=== PATIENT | male | born 1975 | race Caucasian/White ===

== ENCOUNTER 2016-04-22 04:22 | Emergency (ER) | payer BC ==
[~2016-04-22] VITALS: Ht 177.8 cm; Wt 105.0 kg
[2016-04-22 04:32] VITALS: Ht 177.8 cm; Wt 105.0 kg
[2016-04-22] MEDS ORDERED: morphine 4 MG/ML VIAL IV STA ×2 (05:01→05:34)
[2016-04-22] MEDS ORDERED: ONDANSETRON 4 MG INJ IV STA (05:01)
[2016-04-22 05:16] LABS: POTASSIUM 3.9 mmol/L (3.5-5.1)
[2016-04-22 05:18] LABS: ALBUMIN/GLOBULIN RATIO 1.21; BASOPHILS % 0.3 % (0.0-2.0); BILIRUBIN,INDIRECT 1.1 mg/dl (0-1.1); BILIRUBIN,TOTAL 1.1 mg/dl (0.2-1.3); CREATININE 0.86 mg/dl (0.61-1.24); HEMATOCRIT 45.9 % (42.0-52.0); HEMOGLOBIN 15.9 g/dl (14.0-18.0); LYMPHOCYTES # 0.6 10^3/ul (0.8-2.9); LYMPHOCYTES % 6.7 % (15.0-51.0); MEAN CORPUSCULAR HEMOGLOBIN 29.8 pg (29.0-33.0); MEAN CORPUSCULAR HGB CONC 34.7 g/dl (32.0-37.0); MEAN CORPUSCULAR VOLUME 85.9 fl (82.0-101.0); MEAN PLATELET VOLUME 8.2 fl (7.4-10.4); MONOCYTE # 0.3 10^3/ul (0.3-0.9); MONOCYTES % 2.8 % (0.0-11.0); NEUTROPHIL # 8.6 10^3/ul (1.6-7.5); NEUTROPHILS % 90.2 % (39.0-77.0); PLATELET COUNT 269 10^3/UL (140-440); RED BLOOD COUNT 5.34 10^6/ul (4.70-6.10); RED CELL DISTRIBUTION WIDTH 12.2 % (11.5-14.5); TOTAL PROTEIN 9.1 g/dl (6.1-8.1); UNCORRECTED WBC 9.6 10^3/ul (4.8-10.8); WHITE BLOOD COUNT 9.6 10^3/ul (4.8-10.8)
[2016-04-22 05:19] LABS: CALCIUM 9.5 mg/dl (8.4-10.2)
[2016-04-22 05:36] LABS: ADD UMIC YES; URINE BILIRUBIN (Dip) NEGATIVE (NEGATIVE); URINE BLOOD (Dip) NEGATIVE (NEGATIVE); URINE COLOR LT. YELLOW (YELLOW); URINE KETONES (Dip) 3+ (NEGATIVE); URINE LEUKOCYTE ESTERASE (Dip) NEGATIVE (NEGATIVE); URINE NITRITE (Dip) NEGATIVE (NEGATIVE); URINE TOTAL PROTEIN (Dip) 1+ (NEGATIVE); URINE UROBILINOGEN (Dip) 1.0 E.U./dL (0.1-1.0)
[2016-04-22 05:46] LABS: MUCUS,URINE FEW; URINE RBCS 0-2 /HPF ([, 0])
[2016-04-22 05:54] LABS: CONDITION 1; LH ANALYZER COMMENTS 1
[2016-04-22] MEDS ORDERED: HYDR-906 PO (05:54)
[2016-04-22] MEDS ORDERED: ONDA4TAB14 PO (05:54)
[2016-04-22] MEDS ORDERED: DICLOFENAC SODIUM 37.5 MG/ML VIAL IV ONE (06:23)
--- NOTE | 2016-04-22 07:34 | RADRPT ---
PROCEDURE: Abdominal ultrasound CLINICAL INDICATION: Abdominal pain TECHNIQUE: Martin scale, color Doppler, and spectral Doppler ultrasound images of the right upper qu adrant. COMPARISON: None FINDINGS: Pancreas: Visualized portions appear of normal echogenicity, no focal lesions. Liver: Morphology: Normal in size and contour. Echogenicity: Increased echogenicity of the liver parenchyma suggestive of hepatic steatosis. Focal lesions: None. Main portal vein: Patent with hepatopetal flow. Biliary System: Normal appearing gallbladder wall. No gallstones seen. No intra or extra-hepatic biliary dilatation. Common bile duct measures 1.6 mm in maximal dimension. Kidneys: Right 13.0 cm in length. Normal echogenicity. No hydronephrosis. No focal lesions or renal calculi. No free fluid identified. IMPRESSION: Normal gallbladder. No gallstones. Increased echogenicity of the liver parenchyma suggestive of hepatic steatosis. RPTAT: AADD .Eyal Monahan MD, MD Date Time Electronically viewed and signed by .Eyal Monahan MD, on 04/22/2016 07:33 .B/
[2016-04-22] MEDS ORDERED: NAPR-688 PO (07:47)
--- NOTE | 2016-04-22 07:52 | ERD ---
ER Documentation Chief Complaint Date/Time DATE: 04/22/16 TIME: 07:48 Chief Complaint epigastric pain for 8 hrs, n/v HPI This 41-year-old male presents with epigastric pain, nausea vomiting and diarrhea that started last night. He's not sure if he might of ate some bad food he says. The diarrhea was copious and watery, the nausea and vomiting was nonbloody and nonbilious. Has had abdominal crampy pain most pronounced in the upper abdominal area. It was worse following vomiting. Denies any fever or chills. He does not have any right lower quadrant pain. ROS All systems reviewed and are negative except as per history of present illness. Medications Home Meds Active Scripts Naproxen* (Naproxen*) 500 Mg Tablet, 500 MG PO BID Y for PAIN, #20 TAB Prov:MAKIVERÓNICA DO 04/22/16 Hydrocodone/Acetaminophen ([place] 5-325 Tablet) 1 Each Tablet, 1 TAB PO Q6H Y for PAIN, #7 TAB Prov:SAMM FERNANDEZ MD 04/22/16 Ondansetron (Ondansetron Odt) 4 Mg Tab.rapdis, 4 MG PO Q6H Y for NAUSEA AND/OR VOMITING, #10 TAB Prov:SAMM FERNANDEZ MD 04/22/16 Allergies Allergies: Coded Allergies: No Known Allergy (Unverified , 04/22/16) PMhx/Soc Medical and Surgical Hx: pt denies Medical Hx, pt denies Surgical Hx Hx Alcohol Use: Yes Hx Substance Use: No Hx Tobacco Use: Yes Smoking Status: Former smoker Physical Exam Vitals Vital Signs Date Time Temp Pulse Resp B/P Pulse Ox O2 Delivery O2 Flow Rate FiO2 04/22/16 04:32 98.3 91 20 152/72 98 Physical Exam Const: [] No distress Head: Atraumatic Eyes: Normal Conjunctiva ENT: Normal External Ears, Nose and Mouth. Neck: Full range of motion..~ No meningismus. Resp: Clear to auscultation bilaterally Cardio: Regular rate and rhythm, no murmurs Abd: Soft, mild upper abdominal tenderness without guarding or rebound, non distended. Normal bowel sounds Skin: No petechiae or rashes Back: No midline or flank tenderness Ext: No cyanosis, or edema Neur: Awake and alert and oriented 3, no focal deficits Psych: Normal Mood and Affect Result Diagram: 04/22/16 0455 04/22/16 0455 Results 24 hrs Laboratory Tests Test 04/22/16 04:55 Alanine Aminotransferase (ALT/SGPT) 56IU/L Albumin 5.0g/dl Albumin/Globulin Ratio 1.21 Alkaline Phosphatase 90IU/L Anion Gap 22 Aspartate Amino Transf (AST/SGOT) 37IU/L Basophils # Pending Basophils % Pending Blood Urea Nitrogen 14mg/dl Calcium Level 9.5mg/dl Carbon Dioxide Level 26mmol/L Chloride Level 99mmol/L Creatinine 0.86mg/dl Direct Bilirubin 0.00mg/dl Eosinophils # Pending Eosinophils % Pending Globulin 4.10g/dl Glucose Level 156mg/dl Hematocrit 45.9% Hemoglobin 15.9g/dl Indirect Bilirubin 1.1mg/dl Lipase 43U/L Lymphocytes # Pending Lymphocytes % Pending Mean Corpuscular Hemoglobin 29.8pg Mean Corpuscular Hemoglobin Concent 34.7g/dl Mean Corpuscular Volume 85.9fl Mean Platelet Volume 8.2fl Monocytes # Pending Monocytes % Pending Neutrophils # Pending Neutrophils % Pending Nucleated Red Blood Cells # Pending Nucleated Red Blood Cells % Pending Platelet Count 53762^3/UL Potassium Level 3.9mmol/L Red Blood Count 5.3410^6/ul Red Cell Distribution Width 12.2% Sodium Level 143mmol/L Total Bilirubin 1.1mg/dl Total Protein 9.1g/dl Urine Amorphous Phosphates FEW Urine Bilirubin NEGATIVE Urine Clarity CLEAR Urine Color LT. YELLOW Urine Glucose 0.25%% Urine Hemoglobin NEGATIVE Urine Ketones 3+ Urine Leukocyte Esterase NEGATIVE Urine Microscopic RBC 0-2/HPF Urine Microscopic WBC 0-2/HPF Urine Mucus FEW Urine Nitrite NEGATIVE Urine Specific [place] 1.015 Urine Total Protein 1+ Urine Urobilinogen 1.0 E.U./dL Urine pH 8.5 White Blood Count 9.610^3/ul Current Medications Medications (Trade) Dose Ordered Sig/Jose C Route PRN Reason Start Time Stop Time Status Last Admin Dose Admin Morphine Sulfate (morphine) 4 mg ONCE STAT IV 04/22/16 05:01 04/22/16 05:02 DC 04/22/16 05:05 Ondansetron HCl (Zofran Inj) 4 mg ONCE STAT IV 04/22/16 05:01 04/22/16 05:02 DC 04/22/16 05:05 Morphine Sulfate (morphine) 4 mg ONCE STAT IV 04/22/16 05:34 04/22/16 05:36 DC 04/22/16 05:41 Diclofenac Sodium (Dyloject) 37.5 mg ONCE ONCE IV 04/22/16 06:23 04/22/16 06:24 DC 04/22/16 07:05 Procedures/MDM Likely acute gastroenteritis versus food poisoning. Patient has normal labs stable vital signs and appears very well hydrated. Taking good by mouth in the emergency room. Symptoms were resolved with IV fluids, Zofran and morphine. I sent a gallbladder does not reveal any gallstones this is essentially ruled out for cholecystitis. Patient also has a normal bowel gas pattern on x-ray ruling out intestinal obstruction. Discharging him with a few [place], naproxen and Zofran. Primary care follow-up in 2-3 days. Gallbladder ultrasound interpretation: No gallstones, no pursed cardiac fluid, no dilated ducts X-ray abdomen interpretation two-view by myself: See no acute process associated normal bowel gas pattern, no signs of obstruction or free air, no foreign bodies and no fractures Departure Diagnosis: Primary Impression: Abdominal pain Additional Impression: Vomiting and diarrhea Condition: Good Patient Instructions: Abdominal Pain, Self-Care for Vomiting and Diarrhea Additional Instructions: Call your primary care doctor TOMORROW for an appointment during the next 2-3 days.See the doctor sooner or return here if your condition worsens before your appointment time. VERÓNICA GAMBINO DO Apr 22, 2016 07:52
--- NOTE | 2016-04-22 07:54 | RADRPT ---
PROCEDURE: XR acute abdominal series. CLINICAL INDICATION: Abdominal pain TECHNIQUE: 3 views of the abdomen. COMPARISON: None. FINDINGS: No evidence of free air under the diaphragms on the upright view. Nonspecific bowel gas pattern. Osseous structures within normal limits. No soft tissue abnormalities. No radiopaque foreign bodies. IMPRESSION: No radiographic evidence of bowel obstruction. RPTAT: AADD .Eyal Monahan MD, MD Date Time Electronically viewed and signed by .Eyal Monahan MD, on 04/22/2016 07:54 .B/
[2016-04-22 08:07] VITALS: BP 135/79; PULSE 77; RESP 19; TEMP 98.6
== END 2016-04-22 09:02 | disposition home or self-care (01) ==
LOC: E/R 04:22
DX: R10.10 Upper abdominal pain, unspecified (principal); R11.10 Vomiting, unspecified; R19.7 Diarrhea, unspecified; Z87.891 Personal history of nicotine dependence
CPT/HCPCS: 36415; 74010; 76705; 80053; 81001; 83690; 85025; 96374; 96375; 96376; J2270; J2405; Z7502; Z7610; 81003

== ENCOUNTER 2016-04-25 05:27 | Emergency (ER) | payer BC ==
[~2016-04-25] VITALS: Ht 180.3 cm; Wt 104.0 kg
[~2016-04-25 05:27] MED LIST: HYDR-906 PO; NAPR-688 PO; ONDA4TAB14 PO
[2016-04-25 05:45] VITALS: Ht 180.3 cm; Wt 104.0 kg
[2016-04-25] MEDS ORDERED: ONDANSETRON 4 MG INJ IV STA ×2 (06:20→07:16)
[2016-04-25] MEDS ORDERED: SOD CHLORIDE 0.9% 1,000 ML IV STA (06:20)
[2016-04-25] MEDS ORDERED: morphine 4 MG/ML VIAL IV STA (06:20)
[2016-04-25] MEDS ORDERED: KETOROLAC 30 MG INJ IV STA (07:14)
--- NOTE | 2016-04-25 07:25 | RADRPT ---
PROCEDURE: CT Abdomen and Pelvis without contrast. CLINICAL INDICATION: Abdominal pain. TECHNIQUE: Routine axial tomographic images of the abdomen and pelvis were obtained from the domes the diaphragm to the symphysis pubis. The patient was scanned withoutoral or intravenous contrast. Coronal and sagittal reformatted images were obtained from the axial source images. Images were re viewed on a high-resolution PACS workstation. The total exam CTDI equals 21.68 mGy and the total exa m DLP equals 1426.65 mGy-cm. One or more of the following dose reduction techniques were used: Aut omated exposure control, adjustment of the mA and / or kV according to patient size, or use of itera tive reconstruction technique. COMPARISON: None. FINDINGS: The visualized portions of the lung bases demonstrate a 7 mm calcified granuloma within the right lo wer lobe. Evaluation of the intra-abdominal solid organs is somewhat limited on this noncontrast examination. The liver appears normal in size. The liver parenchyma demonstrates diffuse hypoatten uation. There is no intra or extrahepatic biliary dilatation. The gallbladder is unremarkable by CT criteria. The spleen, pancreas, and adrenal glands are unremarkable. The kidneys are symmetric in size. No renal, ureteral, or bladder calculi are identified. No perine phric inflammatory changes are identified. The urinary bladder is grossly unremarkable. The bowel demonstrates normal course and caliber. There is no evidence of bowel obstruction. The a ppendix is normal in appearance. There is an ovoid fat density with surrounding soft tissue attenuat ion within the right anterior abdomen. The pelvic organs are grossly unremarkable. No intraperiton eal free fluid, free air, or abscess is identified. No retroperitoneal, mesenteric, or inguinal lymp hadenopathy is identified. The aorta is normal in caliber. The osseous structures demonstrate mild intervertebral disk space narrowing discogenic endplate lemons ges of L5-S1. No significant subcutaneous soft tissue abnormalities are seen. IMPRESSION: 1. Limited noncontrast CT of the abdomen and pelvis. 2. Ovoid fat density within the right anterior abdomen with soft tissue attenuation rim. This may reflect epiploic appendagitis involving the adjacent proximal transverse colon, or a small omental i nfarct. 3. Hepatic steatosis. RPTAT: HH .Alcira Osborne MD, MD Date Time Electronically viewed and signed by .Alcira Osborne MD, MD on 04/25/2016 07:25 .G/
[2016-04-25 07:38] LABS: ADD UMIC YES; URINE BILIRUBIN (Dip) 1+ (NEGATIVE); URINE BLOOD (Dip) TRACE (NEGATIVE); URINE COLOR YELLOW (YELLOW); URINE KETONES (Dip) 40 (NEGATIVE); URINE LEUKOCYTE ESTERASE (Dip) NEGATIVE (NEGATIVE); URINE NITRITE (Dip) NEGATIVE (NEGATIVE); URINE TOTAL PROTEIN (Dip) TRACE (NEGATIVE); URINE UROBILINOGEN (Dip) 0.2 E.U./dL (0.1-1.0)
[2016-04-25 07:50] LABS: ALBUMIN 4.8 g/dl (3.3-4.9); POTASSIUM 3.6 mmol/L (3.5-5.1)
[2016-04-25 07:51] LABS: BASOPHIL # 0.1 10^3/ul (0.0-0.1); BASOPHILS % 0.6 % (0.0-2.0); HEMATOCRIT 46.5 % (42.0-52.0); HEMOGLOBIN 16.2 g/dl (14.0-18.0); LYMPHOCYTES # 0.8 10^3/ul (0.8-2.9); LYMPHOCYTES % 8.2 % (15.0-51.0); MEAN CORPUSCULAR HEMOGLOBIN 29.8 pg (29.0-33.0); MEAN CORPUSCULAR HGB CONC 34.9 g/dl (32.0-37.0); MEAN CORPUSCULAR VOLUME 85.4 fl (82.0-101.0); MEAN PLATELET VOLUME 8.4 fl (7.4-10.4); MONOCYTE # 0.4 10^3/ul (0.3-0.9); MONOCYTES % 4.3 % (0.0-11.0); NEUTROPHIL # 8.9 10^3/ul (1.6-7.5); NEUTROPHILS % 86.9 % (39.0-77.0); PLATELET COUNT 265 10^3/UL (140-440); RED BLOOD COUNT 5.45 10^6/ul (4.70-6.10); RED CELL DISTRIBUTION WIDTH 12.1 % (11.5-14.5); UNCORRECTED WBC 10.2 10^3/ul (4.8-10.8); WHITE BLOOD COUNT 10.2 10^3/ul (4.8-10.8)
[2016-04-25 07:52] LABS: CONDITION 1
[2016-04-25 07:53] LABS: ALBUMIN/GLOBULIN RATIO 1.26; BILIRUBIN,INDIRECT 1.6 mg/dl (0-1.1); BILIRUBIN,TOTAL 1.6 mg/dl (0.2-1.3); CALCIUM 9.3 mg/dl (8.4-10.2); CREATININE 0.87 mg/dl (0.61-1.24); TOTAL PROTEIN 8.6 g/dl (6.1-8.1)
[2016-04-25 08:00] LABS: ICTOTEST NEGATIVE (NEGATIVE)
[2016-04-25 08:01] LABS: BACTERIA,URINE FEW; MUCUS,URINE FEW; URINE RBCS 0-2 /HPF (0)
[2016-04-25] MEDS ORDERED: HYDR-906 PO (08:16)
[2016-04-25] MEDS ORDERED: ONDA4TAB8 PO (08:16)
--- NOTE | 2016-04-25 09:12 | ERD ---
DATE OF SERVICE: 04/25/2016 HISTORY OF PRESENT ILLNESS: The patient is a 41-year-old male coming in complaining of abdominal pa in with nausea, vomiting and diarrhea. Patient states he was seen 3 days ago. He feels that he ate something, but his symptoms have been progressive. He has had epigastric tenderness. No other abd ominal pain. Has normal urination and bowel movements this morning. Last bowel movement was this m orning. PAST MEDICAL HISTORY: No other medical problems. ALLERGIES: No allergies to medications. SURGICAL HISTORY: Denies. SOCIAL HISTORY: Denies smoking, DRUG USE: Marijuana. ALCOHOL ABUSE: Denies. REVIEW OF SYSTEMS: A 12-point review of systems was done. Refer to HPI for positives, all other sy stems negative. PHYSICAL EXAMINATION VITAL SIGNS: Temperature is 98.6, pulse 84, blood pressure is 133/89, respiratory rate 18, O2 satur ation 100% on room air. Pain intensity of 10/10. GENERAL: The patient is well-appearing, well-nourished, no acute distress. LUNGS: Clear to auscultation bilaterally. There are no rales, wheezes or rhonchi. HEART: Regular rate and rhythm, no murmurs, clicks, rubs or gallops. SKIN: There is no apparent rash or petechiae. PHYSICAL EXAMINATION: VITALS: GENERAL: The patient is well developed and appropriate for usual state of health in no apparent dis tress. HEENT: Pupils equal, round, and reactive to light. EOMI. There is no scleral icterus. NECK: C-spine is soft and supple, there is no meningismus. There is no cervical lymphadenopathy. SKIN: There is no apparent rash or petechiae. BACK EXAM: Normal. ABDOMEN: Normoactive bowel sounds on auscultation. No distention. No organomegaly. Patient has m ild tenderness to palpation in the epigastric region. EMERGENCY ROOM COURSE: The patient had blood work done in the ER. CBC is within normal limits. CM P showed an elevated anion gap of 24, but normal carbon dioxide. Otherwise within normal limits. P atient's urine was negative. Patient had a CT abdomen and pelvis without contrast which showed: 1. Limited noncontrast CT of the abdomen and pelvis. 2. Ovoid fat density within the right anterior abdomen with soft tissue attenuation rim. May refle ct epiploic appendagitis involving the adjacent proximal transverse colon or small omental infarct. 3. Hepatic steatosis. The patient was given morphine with a liter of normal saline in the ER and Zofran. Upon reevaluatio n, patient was resting comfortably and pain had improved. This case was discussed with Dr. Moulton. Given the patient's symptoms had improved and the diagn osis of appendagitis is likely, the patient will be stable for outpatient management. DIAGNOSES: 1. Vomiting. 2. Abdominal pain. MEDICAL DECISION MAKING: I have low suspicion for choledocholithiasis, cholecystitis, cholangitis, or pancreatitis. I have low suspicion for mesenteric adenitis. Patient does not have pain out of p roportion. He is resting comfortably. I have low suspicion for dehydration. Patient is tolerating p.o. in the ER and did not have vomiting while in the ER. Vital signs are stable. The patient is nontoxic appearing. I have low suspicion for nephrolithiasis, low suspicion for small-bowel obstruc tion. DISCHARGE: The patient is discharged stable. Patient given a prescription for Zofran and [place], an d told to follow up with primary care within 1 to 2 days for reevaluation. The patient was told if symptoms progress or worsen to return to the ER. All other questions answered at time of discharge. Discharge summary given at the time of departure. Patient understood and complied with plan. Dictated By: LIZZIE BENTLEY/TILA Conf#: [id number] DID#: [id number]
== END 2016-04-25 08:28 | disposition home or self-care (01) ==
LOC: FTE 05:27
DX: R11.10 Vomiting, unspecified (principal); F17.210 Nicotine dependence, cigarettes, uncomplicated
CPT/HCPCS: 74176; 80053; 81001; 83690; 85025; J1885; J2270; J2405; J7030; 36415; 81003; 96361; 96374; 96375; 96376

== ENCOUNTER 2016-04-26 23:09 | Emergency (ER) | payer SELFPAY ==
[~2016-04-26] VITALS: Ht 180.3 cm; Wt 102.0 kg
[~2016-04-26 23:09] MED LIST changes: +ONDA4TAB8 PO
[2016-04-26 23:17] VITALS: Ht 180.3 cm; Wt 102.0 kg
== END 2016-04-26 23:49 | disposition left against medical advice (07) ==
LOC: E/R 23:09 → EDUNIT# 23:09 → FTE 23:49
DX: Z53.21 Procedure and treatment not carried out due to patient leaving prior to being seen by health care provider (principal)